=== PATIENT | male | born 1980 | race Caucasian/White ===

== ENCOUNTER 2023-01-11 00:30 | Inpatient (IN) | payer BC, OTHER ==
[~2023-01-11] VITALS: Ht 193 cm; Wt 116.6 kg
[2023-01-11] MEDS ORDERED: MORPHINE SULFATE INJ 4 MG/ML DISP.SYRIN ONE (00:49)
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
--- NOTE | 2023-01-11 00:55 | NUR ---
Morphine 4mg IVP given as ordered pain 10/. Pt care continue.
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
[2023-01-11] MEDS ORDERED: MORPHINE SULFATE INJ 2 MG/ML DISP.SYRIN IM ONE (01:00)
[2023-01-11] MEDS ORDERED: HYDROMORPHONE 1 MG/1 ML DISP.SYRIN ONE ×2 (02:16→05:28)
[2023-01-11 02:28] LABS: BASOPHILS % (AUTO) 0.3 % (0.0-2.0); EOSINOPHILS % (AUTO) 0.1 % (0.0-6.0); HEMATOCRIT 48 % (39-51); HEMOGLOBIN 16.2 g/dL (13.5-17.5); LYMPHOCYTES # (AUTO) 1.5 K/uL (0.8-4.8); LYMPHOCYTES % (AUTO) 11.9 % (20.0-44.0); MEAN CORPUSCULAR HGB CONC 34 g/dl (31.0-36.0); MEAN CORPUSCULAR VOLUME 89 fL (80-96); MONOCYTES # (AUTO) 0.6 K/uL (0.1-1.30); MONOCYTES % (AUTO) 4.9 % (2.0-12.0); NEUTROPHILS # (AUTO) 10.6 K/uL (1.8-8.9); NEUTROPHILS % (AUTO) 82.8 % (43.0-81.0); PLATELET COUNT (AUTO) 271 K/uL (150-450); RED BLOOD CELL COUNT(AUTO) 5.33 MIL/uL (4.5-6.0); WHITE BLOOD COUNT (AUTO) 12.8 K/uL (4.3-11.0)
[2023-01-11] MEDS ORDERED: HYDROMORPHONE 1 MG/1 ML DISP.SYRIN IV ONE (02:30)
--- NOTE | 2023-01-11 02:35 | NUR ---
Pt is been casted after Dilaudid 0.5mg IVP given for pain. Pt care continue.
[2023-01-11 02:43] LABS: CREATININE 1.2 mg/dL (0.6-1.3); POTASSIUM 3.7 mmol/L (3.5-5.1)
[2023-01-11] MEDS ORDERED: ONDANSETRON HCL/PF 4 MG/2 ML VIAL IVP PRN (04:00)
[2023-01-11] MEDS ORDERED: MAGNESIUM HYDROXIDE 30 ML UDC PO PRN (04:00)
[2023-01-11] MEDS ORDERED: ACETAMINOPHEN 325 MG TABLET PO PRN (04:00)
[2023-01-11] MEDS ORDERED: HYDROCODONE/APAP 10/325MG TABLET PO PRN (04:00)
[2023-01-11] MEDS ORDERED: Z GUARD REMEDY 4 OZ OINT TP PRN (04:00)
--- NOTE | 2023-01-11 04:10 | NUR ---
Pt care continue as he is been admited. Pt care continue as awaits bed.
[2023-01-11] MEDS: MAG HYDROX/AL HYDROX/SIMETH 30 ML UDC PO PRN ×3 (05:29→19:56)
[2023-01-11] MEDS: HYDROMORPHONE INJ 2 MG/ML DISP.SYRIN IV PRN ×5 (05:30→23:51)
--- NOTE | 2023-01-11 05:36 | NUR ---
Pt is been medicated with Dilaudid 1mg IVP for pain 10/10 , Zofran 4mg IVP for Nasuea and Maalox 30mg for Gas. Pt care continue as he will be reasssesed.
--- NOTE | 2023-01-11 07:24 | NUR ---
Pt care continue as report is given to the AM receiving nurse.
[2023-01-11] MEDS ORDERED: PANTOPRAZOLE 40 MG TABLET.DR PO ONE (07:59)
[2023-01-11] MEDS: PANTOPRAZOLE 40 MG TABLET.DR PO SCH (08:00)
--- NOTE | 2023-01-11 08:30 | NUR ---
report given to khloe for tracy
--- NOTE | 2023-01-11 08:40 | NUR ---
PT RETURNED FROM [facility]IA [facility]
--- NOTE | 2023-01-11 09:00 | NUR ---
PT TRANSFERRED TO [facility] SURG
--- NOTE | 2023-01-11 09:45 | NUR ---
MACHINE SHOP WORKER ADMISSION NOTE PATIENT WAS RECEIVED VIA GURNEY ACCOMPANIED BY TWO ER STAFF. PATIENT IS A/Ox4, ABLE TO MAKE NEEDS KNOWN. ON ROOM AIR, NO S/S OF SOB. PATIENT PAIN LEVEL 7, R LEG PAIN, SHOWING RESTLESSNESS AND FACE GRIMACING. VIALS BP 156/84, HR 128, T 97.9, 02 98%. SKIN ASSESSMENT PERFORMED, SKIN C/D/I, R LEG WRAPPED AND IMMOBILIZED DUE TO FRACTURE. NO EDEMA PRESENT, SKIN WARM TO TOUCH. BLE <3 CAPILLARY REFILL. IV ACCESS ON LAC G#18 INTACT AND PATENT FLUSHING WELL. PATIENT WAS ORIENTED TO ROOM AND HOW TO USE CALL LIGHT. BELONGING WERE ACCOUNTED FOR AND BELONGING SHEET WAS SIGNED AND PLACED IN THE CHART. ADMINISTERED NORCO TO REDUCE PAIN ORDER. SAFETY AND FALL RISK MEASURES IN PLACE: BED LOCKED AND IN THE LOWEST POSITION, SRx2, CALL LIGHT WITHIN REACH.
--- NOTE | 2023-01-11 11:00 | NUR ---
RN NOTES PATIENT COMPLAINED OF PAIN 8/10, PRN DILAUDID ADMINISTERED. PATIENT STILL RESTLESS IN BED AND STATING THAT HE HAS PAIN 5/10. WILL CONTINUE TO MONITOR AND MANAGE PAIN ORDERED
[2023-01-11] MEDS: HYDROCODONE/APAP 10/325MG TABLET PO PRN ×2 (13:29→21:40)
[2023-01-11 15:34] VITALS: BP 156/84
[2023-01-11 16:00] VITALS: BP 143/89
--- NOTE | 2023-01-11 17:11 | NUR ---
RN NOTES PATIENT COMPLAINED OF PAIN 8/10, OF R LEG, PRN DILAUDID ADMINISTERED. WILL CONTINUE TO MONITOR.
--- NOTE | 2023-01-11 19:11 | NUR ---
TECHNICAL AIDE CLOSING NOTE PATIENT IS AWAKE IN BED, A/Ox4, STABLE ON ROOM AIR, BREATHING EVEN AND UNLABORED. NO S/S OF SOB. IV ACCESS IS LAC G#18,PATENT AND INTACT, FLUSHING WELL. PAIN MANAGEMENT MAINTAINED. MEDICATION ADMINISTERED SCHEDULED. FALL AND SAFETY PRECAUTION MAINTAINED: BED ALARM IS ON, LOCKED AND IN THE LOWEST POSITION, SRx2 , CALL LIGHT WITHIN REACH. ENDORSED TO TWISTER TENDER PAPER NURSE.
--- NOTE | 2023-01-11 19:30 | NUR ---
MSRN FULLY AWAKE, IN SEVERE RIGHT LEG/ANKLE PAIN. SITE WITH SPLINT TO IMMOBILIZE LEG SEC TO FX TIB FIB. PLAN OF CARE AND PAIN MGT DISCUSSED WITH PATIENT AND MOTHER, APPEARS TO UNDERSTAND. AWARE PATIENT S' SURGERY NOT TILL WED EARLY AM. DILAUDED 1 MG IVP ADMINISTERED AT 1954. ICEPACKS OVER SITE, SUPPORTED WITH PILLOWS. KEPT COMFORTABLE. CONTINUED.
[2023-01-11 20:00] VITALS: BP 139/73
--- NOTE | 2023-01-11 21:40 | NUR ---
MSRN WEI 1 TAB GIVEN FOR BREAKTHROUGH PAIN. PAIN UNBEARABLE STATED BY PATIENT. MOTHER WANTED TO SPEAK TO ORTHO MD RAI. WILL CALL MOTHER ONCE ORTHO SEES PATIENT, WILL ENDORSE TO INCOMING RN FOR AM.POSITIONS SELF FOR COMFORT.
[2023-01-11 22:00] VITALS: BP 139/73
--- NOTE | 2023-01-11 23:55 | NUR ---
MSRN AWAKENED WITH SEVEE RIGHT LEG PAIN, DILAUDED ADMINISTERED. SCALE OF 8/10.
[2023-01-12] MEDS: TEMAZEPAM 15 MG CAPSULE PO PRN (01:57)
[2023-01-12] MEDS: HYDROMORPHONE INJ 2 MG/ML DISP.SYRIN IV PRN ×4 (04:43→20:42)
--- NOTE | 2023-01-12 05:01 | NUR ---
MSRN PAIN SCALE OF 8/10 OF RIGHT LEG /ANKLE PAIN, DILAUDED 1 MG IVP ADMINISTERED. POSITIONS' SELF FOR COMFORT.
[2023-01-12 06:28] LABS: BASOPHILS % (AUTO) 0.4 % (0.0-2.0); EOSINOPHILS % (AUTO) 1.1 % (0.0-6.0); HEMATOCRIT 41 % (39-51); HEMOGLOBIN 13.9 g/dL (13.5-17.5); LYMPHOCYTES # (AUTO) 1.7 K/uL (0.8-4.8); LYMPHOCYTES % (AUTO) 23.6 % (20.0-44.0); MEAN CORPUSCULAR HGB CONC 34 g/dl (31.0-36.0); MEAN CORPUSCULAR VOLUME 91 fL (80-96); MONOCYTES # (AUTO) 0.6 K/uL (0.1-1.30); MONOCYTES % (AUTO) 8.9 % (2.0-12.0); NEUTROPHILS # (AUTO) 4.7 K/uL (1.8-8.9); PLATELET COUNT (AUTO) 199 K/uL (150-450); RED BLOOD CELL COUNT(AUTO) 4.55 MIL/uL (4.5-6.0); WHITE BLOOD COUNT (AUTO) 7.2 K/uL (4.3-11.0)
[2023-01-12 06:35] LABS: CREATININE 1.1 mg/dL (0.6-1.3); PHOSPHORUS 3.6 mg/dL (2.5-4.9); POTASSIUM 3.4 mmol/L (3.5-5.1)
--- NOTE | 2023-01-12 06:48 | NUR ---
MSRN ASLEEP OF THIS TIME. CLOSELY MONITORED.
--- NOTE | 2023-01-12 07:30 | NUR ---
MSRN DR HALL NOTIFIED FOR CARDIAC CLEARANCE.
[2023-01-12] MEDS: HYDROCODONE/APAP 10/325MG TABLET PO PRN ×4 (07:39→22:09)
[2023-01-12] MEDS: PANTOPRAZOLE 40 MG TABLET.DR PO SCH (07:39)
[2023-01-12 08:00] VITALS: BP 125/75
[2023-01-12] MEDS ORDERED: IV NS 0.9% 1,000 ML IV PRN (09:00)
[2023-01-12 09:13] LABS: CHOLESTEROL 201 mg/dL (<200); HDL CHOLESTEROL 54 mg/dL (40-60); LDL 110 mg/dL (0-99); TRIGLYCERIDES 359 mg/dL (30-150)
[2023-01-12] MEDS: POTASSIUM CHLORIDE 20 MEQ TAB.PRT.SR PO SCH ×3 (09:23→11:44)
[2023-01-12 16:00] VITALS: BP 115/73
--- NOTE | 2023-01-12 18:30 | NUR ---
RN- SHIFT SUMMARY 0700- PATIENT RECEIVED ASLEEP IN BED, BREATHING EVEN AND NON LABORED WITH NO S/S OF DISTRESS. PATIENT IS EASILY AROUSED AND ON RA, TOLERATING WELL. PATIENT C/O PAIN ON RIGHT LOWER EXTREMITY. IV ACCESS ON LEFT AC #20 G NOTED, IV IS INTACT AND PATENT. SAFETY MEASURES IN PLACE: BED PLACED IN LOCKED AND LOW POSITION, SIDE RAILS UP X2, BED ALARM ON, WITH CALL LIGHT WITHIN REACH. 0800- PATIENT AND MOTHER REQUIRED MORE QUESTIONS TO BE ANSWERED ABOUT SURGERY, CONSENT FORMS NOT SIGNED, WILL ENDORSE TO PROGRAM ENGINEER NURSE. 1445- UA ORDERED, PATIENT IS UNABLE TO VOID AT THIS TIME. WILL ENDORSE TO PROGRAM ENGINEER NURSE FOR SPECIMEN COLLECTION. 1830- PATIENT IS AWAKE IN BED, BREATHING EVEN AND NON LABORED WITH NO S/S OF DISTRESS. PATIENT CONTINUES ON RA, TOLERATING WELL. PAIN OF RIGHT LEG IS CURRENTLY BEING RELIEVED WITH NORCO, ADMINISTERED AT 0739, 1407, AND 1817, AND DILAUDID, ADMINISTERED AT 0924 AND 1615, IV ACCESS ON LEFT AC REMAINS INTACT AND PATENT. ALL MEDICATIONS GIVEN THROUGHOUT THE SHIFT. SAFETY MEASURES CONTINUES TO BE IN PLACE: BED PLACED IN LOCKED AND LOW POSITION, SIDE RAILS UP X2, BED ALARM ON, WITH CALL LIGHT WITHIN REACH. WILL ENDORSE TO PROGRAM ENGINEER NURSE FOR CONTINUATION OF CARE.
[2023-01-12 20:00] VITALS: BP 126/83
--- NOTE | 2023-01-12 20:00 | NUR ---
URINALYSIS Urine specimen collected, send to lab for test.
--- NOTE | 2023-01-12 20:17 | NUR ---
PROCEDURE CONSENT Patient ready to sign consent, per patient he understood procedure surgery after KYRA Devi explained to him earlier today. Patient consented to Surgery,Anesthesia, possible Blood transfusion. Completed consent in the patient chart.
--- NOTE | 2023-01-12 20:28 | NUR ---
NPO AFTER MIDNIGHT on 01/13/2023 at 0000 Patient for procedure ORIF right Ankle and nailing right Tibia tomorrow at 0700. Instruction given to patient, not to eat and drink fluids after midnight on 01/13/2023 at 0000. Patient verbalized understanding.
--- NOTE | 2023-01-12 20:50 | NUR ---
RIGHT LEG PAIN Patient in bed, c/o right leg pain 05/06. Denies N/V, no c/o headache. IV Dilaudid given, will reassess pain level.
[2023-01-12 21:53] LABS: COLOR,URINE YELLOW (YELLOW)
[2023-01-12 21:54] LABS: BILIRUBIN,URINE 1+ (NEGATIVE); UGLUCOSE NEGATIVE (NEGATIVE)
[2023-01-12 21:55] LABS: PH,URINE 6.5 (5.0-8.0)
[2023-01-12 21:56] LABS: LEUKOCYTE ESTERASE ,URINE NEGATIVE (NEGATIVE); NITRITE, URINE NEGATIVE (NEGATIVE); PROTEIN,URINE TRACE mg/dl (NEGATIVE); UROBILINOGEN,URINE 0.2 EU/dL (0.2)
[2023-01-12 22:00] LABS: BACTERIA,URINE None seen /HPF (None Seen); RBC,URINE 0-2 /HPF (0-2); SQUAMOUS EPITHELIAL CELL,UR 0-2 /HPF (None Seen); WBC,URINE 0-2 /HPF (0-3)
[2023-01-12] MEDS: ATORVASTATIN 40 MG TABLET PO SCH (22:09)
[2023-01-13] MEDS: HYDROMORPHONE INJ 2 MG/ML DISP.SYRIN IV PRN ×4 (00:30→18:50)
[2023-01-13 04:54] VITALS: BP 119/67
--- NOTE | 2023-01-13 05:49 | NUR ---
END OF SHIFT REPORT Patient in bed, Alert Oriented x4. Oxygen sat high 90's in RA. RFA IV peripheral line intact, IVF continuos. NPO status. Right leg with Arnaldo wrap splint. Right leg, ankle pain managed with IV Dilaudid, ice pack to RLE. NWB RLE. Denies N/V, no c/o chest pain. Surgical and procedural checklist completed. Fall precaution maintained. Plan for ORIF Right ankle and intramedullary nailing Right Tibia in am. Will endorse to oncoming RN.
[2023-01-13] MEDS ORDERED: ANESTHESIA TRAY IN PYXIS 1 EA TRAY MC ONE (06:19)
[2023-01-13] MEDS ORDERED: VANCOMYCIN 1 GM VIAL ONE (06:20)
[2023-01-13] MEDS ORDERED: POLYMYXIN B SULFATE 0 UNITS ONE (06:20)
[2023-01-13] MEDS ORDERED: BUPIVACAINE 0.25% 75 MG/30 ML VIAL ONE (06:20)
[2023-01-13] MEDS ORDERED: SEVOFLURANE 250 ML BOTTLE IH ONE (06:24)
[2023-01-13 06:27] LABS: BASOPHILS % (AUTO) 0.6 % (0.0-2.0); EOSINOPHILS % (AUTO) 2.5 % (0.0-6.0); HEMATOCRIT 38 % (39-51); HEMOGLOBIN 12.7 g/dL (13.5-17.5); LYMPHOCYTES # (AUTO) 1.4 K/uL (0.8-4.8); LYMPHOCYTES % (AUTO) 26.1 % (20.0-44.0); MEAN CORPUSCULAR HGB CONC 33 g/dl (31.0-36.0); MEAN CORPUSCULAR VOLUME 94 fL (80-96); MONOCYTES # (AUTO) 0.4 K/uL (0.1-1.30); MONOCYTES % (AUTO) 7.5 % (2.0-12.0); NEUTROPHILS # (AUTO) 3.3 K/uL (1.8-8.9); NEUTROPHILS % (AUTO) 63.3 % (43.0-81.0); PLATELET COUNT (AUTO) 159 K/uL (150-450); RED BLOOD CELL COUNT(AUTO) 4.07 MIL/uL (4.5-6.0); WHITE BLOOD COUNT (AUTO) 5.2 K/uL (4.3-11.0)
[2023-01-13 06:30] LABS: ALBUMIN 3.7 g/dL (3.4-5.0); BILIRUBIN,TOTAL 0.7 mg/dL (0.2-1.0); CALCIUM, SERUM 8.7 mg/dL (8.5-10.1); CREATININE 1.2 mg/dL (0.6-1.3); MAGNESIUM 2.1 mg/dL (1.8-2.4); PHOSPHORUS 2.7 mg/dL (2.5-4.9); POTASSIUM 3.8 mmol/L (3.5-5.1); TOTAL PROTEIN, SERUM 6.9 g/dL (6.4-8.2)
[2023-01-13] MEDS ORDERED: FENTANYL PF 250MCG/5ML AMPUL ONE (06:52)
[2023-01-13] MEDS ORDERED: MIDAZOLAM HCL 2 MG/2ML VIAL ONE (06:52)
[2023-01-13] MEDS ORDERED: DEXAMETHASONE SOD PHOSPHATE 10 MG/ML VIAL ONE (06:53)
[2023-01-13] MEDS ORDERED: BUPIVACAINE 0.5 % PF 150 MG/30 ML VIAL ONE (06:53)
[2023-01-13] MEDS ORDERED: FAMOTIDINE/PF INJ 20 MG/2 ML VIAL IV ONE (06:53)
[2023-01-13] MEDS ORDERED: ROCURONIUM BROMIDE 50 MG/5 ML ONE (06:54)
--- NOTE | 2023-01-13 07:10 | NUR ---
NURSE OPENING NOTE I RECEIVED END OF SHIFT REPORT FOR THIS PT FROM THE CHARGE WEIGHER NURSE . THE PT WAS NOT IN HIS ROOM WHEN MY SHIFT STARTED, PT WAS TAKEN TO OR FOR HIS TIBIA/FIBIULA SURGERY.
[2023-01-13] MEDS: PANTOPRAZOLE 40 MG TABLET.DR PO SCH ×2 (07:30→07:51)
[2023-01-13] MEDS ORDERED: TRANEXAMIC ACID 1,000 MG/10 ML VIAL ONE (07:57)
[2023-01-13] MEDS ORDERED: HYDROGEN PEROXIDE 480 ML BOTTLE ONE (08:16)
--- NOTE | 2023-01-13 08:19 | NUR ---
Pantoprazole 40 mg could not be administered at 0730 because pt is in surgery .
[2023-01-13] MEDS ORDERED: FENTANYL PF 100MCG/2ML AMPUL ONE (09:37)
[2023-01-13 10:07] LABS: HEMOGLOBIN 12.7 g/dL (13.5-17.5)
[2023-01-13] MEDS ORDERED: DOCUSATE SODIUM 100 MG CAPSULE PO PRN (10:30)
[2023-01-13] MEDS ORDERED: HYDROCODONE/APAP 5/325MG TABLET PO PRN ×2 (10:30)
[2023-01-13] MEDS ORDERED: DOCUSATE SODIUM 250 MG CAPSULE PO PRN (10:30)
[2023-01-13] MEDS ORDERED: BISACODYL SUPP (10 MG) 10 MG/SUPP.RECT SUPP.RECT RC PRN (10:30)
[2023-01-13] MEDS ORDERED: ACETAMINOPHEN 325 MG TABLET PO PRN (10:30)
[2023-01-13] MEDS ORDERED: SENNOSIDES 8.6 MG TABLET PO PRN ×2 (10:30)
--- NOTE | 2023-01-13 10:30 | NUR ---
RN NOTE- RETURNED FROM SURGERY. VS STABLE, 02 AT 95% SATS ON RA. LLE W SURGICAL DSG, DRY INTACT. PERIPHERAL PULSES +, ICE PACKS APPLIED, MEDICATED W ANALGESICS. FLUIDS GIVEN. MONITOR / ASSIST, COMFORT MONITORED
[2023-01-13] MEDS: MORPHINE SULFATE INJ 4 MG/ML DISP.SYRIN IV PRN ×3 (10:43→20:14)
[2023-01-13] MEDS: ENOXAPARIN SODIUM 40 MG/0.4 ML DISP.SYRIN SQ SCH (11:49)
[2023-01-13] MEDS: HYDROCODONE/APAP 10/325MG TABLET PO PRN ×3 (13:00→21:57)
[2023-01-13] MEDS: ANCEF 1 GM/50 ML D5W IV SCH ×4 (15:06→23:22)
[2023-01-13 15:58] VITALS: BP 100/61
--- NOTE | 2023-01-13 16:33 | NUR ---
RN NOTE- PT MORE COMFORTABLE WITH ALTERNATING MEDS. MORPHINE / NORCO / DILAUDID. ICE PACKS APPLIED AND PILLOWS FOR REPOSITIONING AND COMFORT. PO INTAKE GOOD. FLUIDS ADEQUATE. MONITOR
--- NOTE | 2023-01-13 18:33 | NUR ---
RN CLOSING NOTE-S/P TIB FIB ORIF RLE. SURGICAL DSG DRY / INTACT,PERIPHERAL PULSES +, CAPILLARY REFILL +3, TOES WARM, ICE PACKS APPLIED TO EXTREMITY. ALTERNATING MORPHINE , NORCO, DILAUDID TO KEEP HIM COMFORTABLE. PO INTAKE GOOD FOOD / FLUIDS. PT EVAL - PT STOOD ON OPPOSITE LEG. NON WEIGHT BEARING ON SURGICAL EXTREMITY. CONTINUE TO MAINTAIN COMFORT AND MONITOR PAIN AND DRESSING/ PERIPHERAL PULSES AND CAPILLARY REFILL. SIDE RAILS UP/ CALL LIGHT CLOSE. MONITOR / ASSIST
--- NOTE | 2023-01-13 19:20 | NUR ---
MS RN OPENING NOTE RECEIVED PATIENT FROM AM NURSE; A/O X 4, ABLE TO MAKE NEEDS KNOWN; STABLE ON ROOM AIR, BREATHING EVENLY AND NO S/S OF DISTRESS NOTED; S/P ORIF OF RIGHT ANKLE AND NAILING OF RIGHT TIBIA; WITH COMPLAINT OF MILD PAIN AT THIS TIME, WAITING FOR HIS NEXT DUE OF PAIN MEDICATION; WITH IV ACCESS AT RIGHT AC G#20 SALINE LOCK; SAFETY MEASURES IMPLEMENTED, BED IN LOW AND LOCKED POSITION, SIDE RAILS UP X 2, CALL LIGHT WITHIN REACH; WILL CONTINUE TO MONITOR THROUGHOUT SHIFT
[2023-01-13 20:00] VITALS: BP 116/61
[2023-01-13] MEDS: ATORVASTATIN 40 MG TABLET PO SCH (21:57)
[2023-01-14] MEDS: MORPHINE SULFATE INJ 4 MG/ML DISP.SYRIN IV PRN ×5 (00:26→22:12)
[2023-01-14] MEDS: HYDROCODONE/APAP 10/325MG TABLET PO PRN ×5 (02:07→19:43)
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
[2023-01-14] MEDS: PANTOPRAZOLE 40 MG TABLET.DR PO SCH (06:40)
[2023-01-14 07:00] VITALS: BP 101/65
[2023-01-14 07:10] LABS: BASOPHILS % (AUTO) 0.1 % (0.0-2.0); HEMATOCRIT 33 % (39-51); LYMPHOCYTES # (AUTO) 0.5 K/uL (0.8-4.8); LYMPHOCYTES % (AUTO) 7.5 % (20.0-44.0); MEAN CORPUSCULAR HGB CONC 34 g/dl (31.0-36.0); MEAN CORPUSCULAR VOLUME 93 fL (80-96); MONOCYTES # (AUTO) 0.5 K/uL (0.1-1.30); MONOCYTES % (AUTO) 7.5 % (2.0-12.0); NEUTROPHILS # (AUTO) 5.9 K/uL (1.8-8.9); NEUTROPHILS % (AUTO) 84.9 % (43.0-81.0); PLATELET COUNT (AUTO) 168 K/uL (150-450); WHITE BLOOD COUNT (AUTO) 6.9 K/uL (4.3-11.0)
--- NOTE | 2023-01-14 07:15 | NUR ---
MS RN CLOSING NOTE A/O X 4, ABLE TO MAKE NEEDS KNOWN; STABLE ON ROOM AIR, BREATHING EVENLY AND NO S/S OF DISTRESS NOTED; S/P ORIF OF RIGHT ANKLE AND NAILING OF RIGHT TIBIA; WITH IV ACCESS AT LEFT HAND G#20 SALINE LOCK, INTACT AND PATENT; ADMINISTERED MEDICATIONS PRESCRIBED; PATIENT'S NEEDS ATTENDED; MONITORED PATIENT ACCORDINGLY; SAFETY MEASURES IMPLEMENTED, BED IN LOW AND LOCKED POSITION, SIDE RAILS UP X 2, CALL LIGHT WITHIN REACH; WILL ENDORSE TO AM NURSE FOR MINOR.
[2023-01-14 07:32] LABS: CALCIUM, SERUM 9.1 mg/dL (8.5-10.1); CREATININE 1.4 mg/dL (0.6-1.3); POTASSIUM 4.3 mmol/L (3.5-5.1)
--- NOTE | 2023-01-14 08:15 | NUR ---
RN OPENING NOTE PT IS IN BED, AWAKE, A/O X 4, HE HAD HIS FIRST NIGHT AFTER HIS SURGERY FOR S/P ORIF OF RIGHT ANKLE AND NAILING OF RIGHT TIBIA; PT SAYS HE HAD A ROUGH NIGHT LAST NIGHT WAKING UP ON AND OFF WITH A PAIN OF AT LEAST 6 OUT OF 10. I DID THE MORNING ASSESSMENTS , VITALS ARE NORMAL. HEART AND LUNG SOUNDS ARE NORMAL. BOWEL SOUNDS ARE HYPOACTIVE AND I ASKED THE PT ABOUT HIS LAST BOWEL MOVEMENT AND PT SAID HE HAD ONE BOWEL MOVEMENT SINCE 3 DAYS AGO . I WILL GIVE HIM COLACE TODAY TO HELP HIM GO . PT IS ON RA & STABLE BREATHING EVENLY, NO S/S OF DISTRESS NOTED; WITH IV ACCESS AT LEFT HAND G#20 SALINE LOCK, INTACT AND PATENT; I WILL ADMINISTER HYDROCODONE AND MORPHINE ALTERNATIVELY TODAY TO RELIEVE HIS SURGICAL PAIN WHICH IS 8 OUT OF 10 AT THIS TIME. I WILL MONITORED PATIENT ACCORDINGLY; SAFETY MEASURES IMPLEMENTED, BED IS LOCKED AND IN LOWEST POSITION.SIDE RAILS UP X 2, CALL LIGHT WITHIN REACH; PT ASKED FOR A BED BATH , DEODORANT , TOOTH PASTE AND MOUTH WASH WHICH WERE DONE FOR THE PT THIS MORNING. LABS ARE BACK. HGB 11, HCT 33. RBC 3.5. PT CARE AND PAIN MANAGEMENT ARE IN PLACE FOR MY SHIFT.
[2023-01-14] MEDS: ENOXAPARIN SODIUM 40 MG/0.4 ML DISP.SYRIN SQ SCH (11:07)
--- NOTE | 2023-01-14 16:00 | NUR ---
RN NOTE- SURGICAL DRESSING LOOSE AND IRRITATING PT. REMOVED DRESSING AT THIS TIME. DAWN ALL INTACT, EDGES WELL-APPROXIMATED, NO DEHISCENCE, NO PURULENCE, ERYTHEMA OR ODOR. PETROLEUM GAUZE REAPPLIED TO DAWN, COVERED W STERILE GAUZE, TAPED SECURELY AND WRAPPED BEFORE. PRE-MEDICATED PER ORDERS. TOLERATED WELL. PHOTOS TAKEN AND FORWARDED TO DR GOMEZ.
[2023-01-14 16:22] VITALS: BP 102/68
[2023-01-14] MEDS: GABAPENTIN 100 MG CAPSULE PO SCH (16:49)
--- NOTE | 2023-01-14 18:40 | NUR ---
RN CLOSING NOTE PT IS A/O X 4, STABLE ON RA, BREATHING WITH NO DISTRESS . GOOD APPETITE. NORMAL VSs. GOOD APPETITE. PT IS CONSTIPATED AND STILL NO BOWEL MOVEMENT. ABLE TO MAKE NEEDS KNOWN; THE SURGICAL DRESSING OF RIGHT LEG WAS CHANGED BY TONY IN THE AFTERNOON, NO INFECTION, REDNESS, OR ODOR WAS NOTED. SURGICAL WOUNDS HAVE DAWN AND ARE HEALING WELL. IV ACCESS AT LEFT HAND G#20 SALINE , PATENT AND INTACT. ADMINISTERED PAIN MEDICATIONS AND LOVENOX PRESCRIBED; PATIENT'S NEEDS ATTENDED; MONITORED PATIENT ACCORDINGLY; MOTHER VISITED THE SON IN THE AFTERNOON. SAFETY MEASURES IMPLEMENTED: BED IN LOW AND LOCKED POSITION, SIDE RAILS UP X 2, CALL LIGHT WITHIN REACH; WILL ENDORSE TO PM NURSE FOR MINOR.
--- NOTE | 2023-01-14 19:30 | NUR ---
MS RN OPENING NOTE A/O X 4, ABLE TO MAKE NEEDS KNOWN; STABLE ON ROOM AIR, BREATHING EVENLY AND NO S/S OF DISTRESS NOTED; S/P ORIF OF RIGHT ANKLE AND NAILING OF RIGHT TIBIA; WITH IV ACCESS AT LEFT HAND G#20 SALINE LOCK, INTACT AND PATENT; ENCOURAGED VERBALIZATION OF NEEDS; SAFETY MEASURES IMPLEMENTED, BED IN LOW AND LOCKED POSITION, SIDE RAILS UP X 2, CALL LIGHT WITHIN REACH; WILL CONTINUE TO MONITOR THROUGHOUT SHIFT
[2023-01-14 20:26] VITALS: BP 118/53
[2023-01-14] MEDS: ATORVASTATIN 40 MG TABLET PO SCH (22:12)
[2023-01-15] MEDS: HYDROCODONE/APAP 10/325MG TABLET PO PRN ×4 (01:32→10:07)
--- NOTE | 2023-01-15 05:00 | NUR ---
MS RN NOTE UPON MAKING ROUNDS, NOTED THAT PATIENT'S IV ACCESS WAS OUT AND REINSERTED IV ACCESS ON RIGHT HAND G#20, INTACT AND PATENT, FLUSHING WELL; WILL CONTINUE TO MONITOR
[2023-01-15 06:22] LABS: BASOPHILS % (AUTO) 0.5 % (0.0-2.0); EOSINOPHILS % (AUTO) 1.5 % (0.0-6.0); HEMATOCRIT 31 % (39-51); HEMOGLOBIN 10.5 g/dL (13.5-17.5); LYMPHOCYTES # (AUTO) 1.5 K/uL (0.8-4.8); MEAN CORPUSCULAR HGB CONC 33 g/dl (31.0-36.0); MEAN CORPUSCULAR VOLUME 93 fL (80-96); MONOCYTES # (AUTO) 0.3 K/uL (0.1-1.30); NEUTROPHILS # (AUTO) 3.2 K/uL (1.8-8.9); PLATELET COUNT (AUTO) 145 K/uL (150-450); RED BLOOD CELL COUNT(AUTO) 3.39 MIL/uL (4.5-6.0); WHITE BLOOD COUNT (AUTO) 5.1 K/uL (4.3-11.0)
--- NOTE | 2023-01-15 06:57 | NUR ---
MS RN CLOSING NOTE PATIENT IS A/O X 4, ABLE TO MAKE NEEDS KNOWN; STABLE ON ROOM AIR, BREATHING EVENLY AND NO S/S OF DISTRESS NOTED; S/P ORIF OF RIGHT ANKLE AND NAILING OF RIGHT TIBIA; WITH IV ACCESS , INTACT AND PATENT; ADMINISTERED MEDICATIONS PRESCRIBED; PATIENT'S NEEDS ATTENDED; MONITORED PATIENT ACCORDINGLY; SAFETY MEASURES IMPLEMENTED, BED IN LOW AND LOCKED POSITION, SIDE RAILS UP X 2, CALL LIGHT WITHIN REACH; WILL ENDORSE TO AM NURSE FOR MINOR.
[2023-01-15 07:00] VITALS: BP 151/99
--- NOTE | 2023-01-15 07:15 | NUR ---
MS RN OPENING NOTE RECEIVED PT IN BED AWAKE ; STABLE ON ROOM AIR, NO SOB OR DISTRESS NOTED; S/P ORIF OF RIGHT ANKLE AND NAILING OF RIGHT TIBIA; WITH IV ACCESS AT LEFT HAND G#20 SALINE LOCK, INTACT AND PATENT; ENCOURAGED VERBALIZATION OF NEEDS; SAFETY MEASURES IMPLEMENTED, BED IN LOW AND LOCKED POSITION, SIDE RAILS UP X 2, CALL LIGHT WITHIN REACH; WILL CONTINUE TO MONITOR THROUGHOUT SHIFT
[2023-01-15] MEDS: GABAPENTIN 100 MG CAPSULE PO SCH (08:25)
[2023-01-15] MEDS: DOCUSATE SODIUM 100 MG CAPSULE PO SCH (08:25)
[2023-01-15] MEDS: PANTOPRAZOLE 40 MG TABLET.DR PO SCH (08:25)
[2023-01-15] MEDS ORDERED: IV NS 0.9% 1,000 ML IV PRN (09:00)
[2023-01-15 09:12] LABS: BASOPHILS % (AUTO) 0.6 % (0.0-2.0); EOSINOPHILS % (AUTO) 1.4 % (0.0-6.0); HEMATOCRIT 32 % (39-51); HEMOGLOBIN 10.8 g/dL (13.5-17.5); LYMPHOCYTES % (AUTO) 19.8 % (20.0-44.0); MEAN CORPUSCULAR HGB CONC 33 g/dl (31.0-36.0); MEAN CORPUSCULAR VOLUME 92 fL (80-96); MONOCYTES # (AUTO) 0.3 K/uL (0.1-1.30); MONOCYTES % (AUTO) 6.9 % (2.0-12.0); NEUTROPHILS # (AUTO) 3.6 K/uL (1.8-8.9); NEUTROPHILS % (AUTO) 71.3 % (43.0-81.0); PLATELET COUNT (AUTO) 157 K/uL (150-450); RED BLOOD CELL COUNT(AUTO) 3.52 MIL/uL (4.5-6.0); WHITE BLOOD COUNT (AUTO) 5.1 K/uL (4.3-11.0)
[2023-01-15 09:50] LABS: ALBUMIN 3.5 g/dL (3.4-5.0); BILIRUBIN,TOTAL 0.4 mg/dL (0.2-1.0); CALCIUM, SERUM 8.8 mg/dL (8.5-10.1); CREATININE 1.1 mg/dL (0.6-1.3); MAGNESIUM 2.1 mg/dL (1.8-2.4); PHOSPHORUS 2.6 mg/dL (2.5-4.9); POTASSIUM 3.6 mmol/L (3.5-5.1); TOTAL PROTEIN, SERUM 6.7 g/dL (6.4-8.2)
--- NOTE | 2023-01-15 10:00 | NUR ---
RN NOTES AROUND 0740 PATIENT WAS SEEN CRAWLING ON THE FLOOR GOING OUTSIDE THE HALLWAY FROM ROOM 310 , NOTED WITH SLIGHT BLEEDING ON THE FLOOR FROM THE RIGHT LOWER LEG OF THE PATIENT , TRIED TO STOP PATIENT BUT STILL CONTINUE CRAWLING ON THE FLOOR , S/P RIGHT LOWER LEG ORIF AND PATIENT NOTED WITH CONFUSION AND FORGETFULNESS , OFFERED WITH WHEEL CHAIR AND STILL CONTINUE TO CRAWL , ASKED PATIENT PATIENT WHAT HAPPENED AND PATIENT SAID " HE TRIED TO STAND UP BY HIMSELF OUT OF THE BED AND HIS RIGHT LEGS IS SO WEAK AND TRIED TO SIT ON THE FLOOR , HE SAID HE DIDN'T HIT HIS HEAD AND HE DIDNT FALL , HE SAID THAT HES HEARING VOICES , PATIENT IS HAVING AUDITORY HALLUCINATIONS , WAS ABLE TO STOP PATIENT CRAWLING WITH THE HELP OF THE OTHER STAFF , ASSISTED BACK TO BED AND HE SAID THAT HE WANTS ANOTHER ROOM , HE DOESNT WANT TO GO BACK TO ROOM 310 , TRANSFERED TO ROOM 322 -1 AND KEPT COMFORTABLE , CHARGE NURSE ASSIGNED WITH SITTER , BODY ASSESSMENT DONE AND RANGE OF MOTION RENDERED AND HE SAID HES IN PAIN BUT HE DOESNT WANT TO TAKE THE MEDICATION , OFFERED WITH WATER AND PATIENT ASKING IF WE PUT SOMETHING IN THE WATER , ASSURED THAT NOTHING WAS MIXED IN THE WATER, DRESSING ON THE RIGHT LOWER LEG WAS CHANGED AND SURGICAL INCISION WITH DAWN NOTED WITH SLIGHT BLEEDING AND DRESSING WAS CHANGED , DRY ,CLEAN AND INTACT , CALLED MOTHER ABOUT WHAT HAPPENED AND SHE SAID SHES COMING , MD AWARE WITH ORDER TO HAVE XRAY ON THE RIGHT ANKLE AND RIGHT TIBIA - FIBULA STAT AND FOR PSYCH CONSULT WITH DR JOSEPH, ORDERS NOTED AND CARRIED OUT , C/O OF 7/10 PAIN ON THE RIGHT LOWER LEG AND NORCO GIVEN ORDERED, STARTED WITH A NEW IV ACCESS , ALL DUE MEDS GIVEN AND CONTINUE TO MONITOR , PATIENT IS MORE CALM AND MORE ALERT AT THIS TIME .
[2023-01-15] MEDS: ENOXAPARIN SODIUM 40 MG/0.4 ML DISP.SYRIN SQ SCH (11:27)
[2023-01-15] MEDS: risperiDONE 1 MG TABLET PO SCH ×2 (11:56→16:54)
[2023-01-15] MEDS: TRAMADOL HCL 50 MG TABLET PO PRN ×2 (13:42→21:46)
[2023-01-15] MEDS ORDERED: POLYVINYL ALCOHOL 15 ML BOTTLE EACHEYE PRN (14:00)
--- NOTE | 2023-01-15 18:47 | NUR ---
MS RN CLOSING NOTE PATIENT IN BED AWAKE ; STABLE ON ROOM AIR, NO SOB OR DISTRESS NOTED; S/P ORIF OF RIGHT ANKLE AND NAILING OF RIGHT TIBIA; WITH IV ACCESS AT LEFT HAND G#20 SALINE LOCK, INTACT AND PATENT; ENCOURAGED VERBALIZATION OF NEEDS; SAFETY MEASURES IMPLEMENTED, ALL DUE MEDS ORDERED GIVEN , SEEN BY PSYCHIATRIST DR JOSEPH DUE TO AUDITORY HALLUCINATIONS AND WITH NEW ORDER OF RISPERDAL TID , XRAY DONE STAT ON RIGHT ANKLE AND RIGHT TIBIA FIBULA AND NO CHANGES NOTED , C/O OF PAIN AND DISCOMFORT AND TRAMADOL GIVEN ORDERED AND WITH HELP , BED IN LOWEST AND LOCKED POSITION, SIDE RAILS UP X 2, CALL LIGHT WITHIN REACH; ENDORSED TO NEXT SHIFT
--- NOTE | 2023-01-15 19:50 | NUR ---
MS RN OPENING NOTES RECEIVED PATIENT IN BED ASLEEP. EASILY BE AWAKEN BY VERBAL STIMULI. SITTER AT BEDSIDE. ON ROOM AIR, BREATHING EVEN AND UNLABORED, NO SOB OR DISTRESS NOTED. IV ACCESS AT LEFT HAND G#20 SALINE LOCK, INTACT AND PATENT. SAFETY MEASURES IN PLACE WITH BED IN LOWEST AND LOCKED POSITION. SIDE RAILS UP X 2, CALL LIGHT WITHIN REACH. WILL CONTINUE TO MONITOR THE PATIENT.
[2023-01-15 20:00] VITALS: BP 113/66
[2023-01-15] MEDS: ATORVASTATIN 40 MG TABLET PO SCH (21:41)
--- NOTE | 2023-01-15 22:06 | NUR ---
RN NOTES-ULTRAM GIVEN PATIENT C/O OF LEG PAIN WITH A SCALE OF 7/10. ULTRAM 50MG GIVEN PRN. WILL CONTINUE TO MONITOR THE PATIENT.
[2023-01-16] MEDS: HYDROCODONE/APAP 10/325MG TABLET PO PRN ×4 (00:28→21:38)
--- NOTE | 2023-01-16 00:28 | NUR ---
RN NOTES-NORCO GIVEN PATIENT C/O OF LEG PAIN WITH A SCALE OF 8/10. NORCO GIVEN PRN. WILL CONTINUE TO MONITOR THE PATIENT.
[2023-01-16] MEDS: TEMAZEPAM 15 MG CAPSULE PO PRN (00:58)
[2023-01-16] MEDS: TRAMADOL HCL 50 MG TABLET PO PRN ×2 (04:10→13:48)
--- NOTE | 2023-01-16 04:10 | NUR ---
RN NOTES-ULTRAM GIVEN PATIENT C/O OF LEG PAIN WITH A SCALE OF 8/10. ULTRAM 50MG GIVEN PRN. WILL CONTINUE TO MONITOR THE PATIENT.
[2023-01-16 05:58] LABS: BASOPHILS % (AUTO) 0.8 % (0.0-2.0); EOSINOPHILS % (AUTO) 2.8 % (0.0-6.0); HEMATOCRIT 32 % (39-51); HEMOGLOBIN 10.6 g/dL (13.5-17.5); LYMPHOCYTES # (AUTO) 1.5 K/uL (0.8-4.8); LYMPHOCYTES % (AUTO) 32.1 % (20.0-44.0); MEAN CORPUSCULAR HGB CONC 33 g/dl (31.0-36.0); MEAN CORPUSCULAR VOLUME 92 fL (80-96); MONOCYTES # (AUTO) 0.3 K/uL (0.1-1.30); MONOCYTES % (AUTO) 6.2 % (2.0-12.0); NEUTROPHILS # (AUTO) 2.7 K/uL (1.8-8.9); NEUTROPHILS % (AUTO) 58.1 % (43.0-81.0); PLATELET COUNT (AUTO) 158 K/uL (150-450); RED BLOOD CELL COUNT(AUTO) 3.45 MIL/uL (4.5-6.0); WHITE BLOOD COUNT (AUTO) 4.7 K/uL (4.3-11.0)
[2023-01-16 06:30] LABS: ALBUMIN 3.2 g/dL (3.4-5.0); BILIRUBIN,TOTAL 0.5 mg/dL (0.2-1.0); CREATININE 0.9 mg/dL (0.6-1.3); MAGNESIUM 2.4 mg/dL (1.8-2.4); PHOSPHORUS 4.2 mg/dL (2.5-4.9); POTASSIUM 3.4 mmol/L (3.5-5.1); TOTAL PROTEIN, SERUM 6.2 g/dL (6.4-8.2)
--- NOTE | 2023-01-16 06:58 | NUR ---
MS RN CLOSING NOTES PATIENT IN BED ASLEEP. EASILY BE AWAKEN BY VERBAL STIMULI. SITTER AT BEDSIDE. ON ROOM AIR, BREATHING EVEN AND UNLABORED, NO SOB OR DISTRESS NOTED. IV ACCESS AT LEFT HAND G#20 SALINE LOCK, INTACT AND PATENT. SAFETY MEASURES MAINTAINED WITH BED IN LOWEST AND LOCKED POSITION. SIDE RAILS UP X 2, CALL LIGHT WITHIN REACH. WILL ENDORSE TO THE NEXT SHIFT.
[2023-01-16 07:54] VITALS: BP 122/68
[2023-01-16] MEDS ORDERED: POTASSIUM CHLORIDE 20 MEQ TAB.PRT.SR PO SCH (08:00)
[2023-01-16] MEDS: PANTOPRAZOLE 40 MG TABLET.DR PO SCH (08:26)
[2023-01-16] MEDS: DOCUSATE SODIUM 100 MG CAPSULE PO SCH (08:27)
[2023-01-16] MEDS: risperiDONE 1 MG TABLET PO SCH ×2 (08:27→17:24)
[2023-01-16] MEDS: ENOXAPARIN SODIUM 40 MG/0.4 ML DISP.SYRIN SQ SCH (11:49)
[2023-01-16] MEDS ORDERED: MAGNESIUM HYDROXIDE 30 ML UDC PO ONE (15:00)
[2023-01-16 15:04] VITALS: BP 107/52
--- NOTE | 2023-01-16 18:42 | NUR ---
MS RN CLOSING NOTES PATIENT IN BED AWAKE, A/O X4. ON ROOM AIR, BREATHING EVEN AND UNLABORED, NO SOB OR DISTRESS NOTED. IV ACCESS AT LEFT HAND G#20 SALINE LOCK, INTACT AND PATENT. PATIENT'S WAITING FOR BOWEL MOVEMENT TO PROGRESS. LAXATIVE GIVEN AND ALL OTHER MEDICATIONS GIVEN ORDERED. PATIENT EDUCATED ON RISKS AND BENEFITS OF USING PAIN MEDICATIONS OF PAIN MEDICATIONS. SAFETY MEASURES MAINTAINED WITH BED IN LOWEST AND LOCKED POSITION. SIDE RAILS UP X 2, CALL LIGHT WITHIN REACH. WILL BE ENDORSED TO PM SHIFT NURSE FOR MINOR.
--- NOTE | 2023-01-16 19:37 | NUR ---
MS RN OPENING NOTES - RECEIVED PATIENT TALKING ON THE PHONE WHILE LAYING IN BED. A/O X4. BREATHING EVEN AND NON-LABORED ON ROOM AIR. NOT IN APPARENT DISTRESS. VERBALIZED IMPROVEMENT OF RIGHT LEG/ANKLE PAIN AFTER TAKING HIS PAIN MED. HAS LEFT HAND IV ACCESS #20G AND SALINE LOCKED. NO S/S OF INFILTRATION NOTED. VERBALIZED HE HAD BM X1, WNL. ADVISED TO KEEP HIS RIGHT LOWER EXTREMITY ELEVATED. SAFETY PRECAUTIONS IN PLACE: BED LOCKED AND IN LOW POSITION, SIDE RAILS UP X2, CALL LIGHT WITHIN REACH. WILL CONTINUE PLAN OF CARE.
[2023-01-16 20:00] VITALS: BP 102/57
[2023-01-16] MEDS: ATORVASTATIN 40 MG TABLET PO SCH (21:35)
--- NOTE | 2023-01-16 21:40 | NUR ---
C/O SHARP AND THROBBING RIGHT LEG/ANKLE PAIN 03/06. GAVE PRN NORCO 10-325 AND APPLIED COLD COMPRESS.
[2023-01-17] MEDS: HYDROCODONE/APAP 10/325MG TABLET PO PRN ×2 (06:56→12:23)
[2023-01-17] MEDS: PANTOPRAZOLE 40 MG TABLET.DR PO SCH (06:56)
--- NOTE | 2023-01-17 07:10 | NUR ---
MS RN OPENING NOTES RECEIVED PATIENT AWAKE IN BED, A/Ox4, ABLE TO MAKE NEEDS KNOWN. ON ROOM AIR NO S/S OF RESPIRATORY DISTRESS. IV ACCESS L HAND #20G S/L, INTACT AND PATENT. AMBULATORY WITH WALKER, NON-WEIGHT BEARING RLE. SKIN ISSUES: RLE SURGERY SITE. DRESSING IN PLACE NO S/S OF DRAINAGE. SAFETY MEASURES IN PLACE: BED LOCKED AND IN LOWEST POSITION, HOB ELEVATED, CALL LIGHT WITHIN REACH, SIDE RAILS UPx2. WILL CONTINUE TO MONITOR.
--- NOTE | 2023-01-17 07:24 | NUR ---
MS BECERRA CLOSING NOTES - PATIENT AWAKE, ABLE TO VERBALIZE NEEDS. NO CARDIAC OR RESPIRATORY DISTRESS THROUGHOUT THE NIGHT. GIVEN PRN NORCO 10-325MG FOR HIS RIGHT LEG/ANKLE PAIN 03/06. AFEBRILE. LEFT HAND IV ACCESS INTACT, PATENT AND FLUSHING. SURGICAL DRESSING C/D/I. ALL DUE MEDS GIVEN AND NEEDS ATTENDED. NWB ON RIGHT LOWER EXTREMITY, USES FWW TO AMBULATE. SAFETY PRECAUTIONS MAINTAINED. WILL ENDORSE TO NEXT SHIFT FOR MINOR. Addendum: 01/17/23 at 0732 by February BUDDY BECERRA NO HALLUCINATIONS OR UNUSUAL BEHAVIOR OBSERVED DURING SHIFT.
[2023-01-17 08:17] VITALS: BP 117/55
[2023-01-17] MEDS: risperiDONE 1 MG TABLET PO SCH (08:43)
[2023-01-17] MEDS: DOCUSATE SODIUM 100 MG CAPSULE PO SCH (08:43)
[2023-01-17] MEDS: TRAMADOL HCL 50 MG TABLET PO PRN (08:46)
--- NOTE | 2023-01-17 09:00 | NUR ---
RN NOTES PATIENT COMPLAINED OF PAIN IN R LEG, 8/, PRN ULTRAM ADMINISTERED. WILL CONTINUE TO MONITOR.
[2023-01-17] MEDS: ENOXAPARIN SODIUM 40 MG/0.4 ML DISP.SYRIN SQ SCH (11:15)
[2023-01-17] MEDS ORDERED: RIVA10TA PO (11:57)
[2023-01-17] MEDS ORDERED: TRAM50TA2 PO (11:57)
[2023-01-17] MEDS ORDERED: ATOR40TA PO (11:57)
[2023-01-17] MEDS ORDERED: HYDR-3980 PO (11:57)
[2023-01-17] MEDS ORDERED: RISP1TAB7 PO (11:57)
[2023-01-17] MEDS ORDERED: DOCU250C14 PO (11:57)
--- NOTE | 2023-01-17 13:00 | NUR ---
PRETZEL TWISTER NOTES PATIENT DISCHARGED HOME. A/Ox4 ABLE TO MAKE NEEDS KNOWN STABLE ON ROOM AIR. NO S/S OF RESPIRATORY DISTRESS OR DISCOMFORT. PATIENT REQUESTING PAIN MEDICATION PRIOR TO DISCHARGE, PRN NARCO ADMINISTERED FOR PAIN 05/06. PHOTOS TAKEN AND FILED INTO CHART. ALL FORMS SIGNED, COPIED, AND FILED INTO CHART. IV ACCESS REMOVED AND PRESSURE DRESSING APPLIED, ID BAND REMOVED. PATIENT LEFT UNIT VIA WHEELCHAIR ACCOMPANIED BY RN, GRETCHEN @7560. LEFT VIA PRIVATE CAR WITH MOTHER, CHARGE NURSE AND MD AWARE OF DISCHARGE.
== END 2023-01-17 12:30 | disposition home health service (06) | DRG 493 ==
LOC: ER 00:33 → TRANSITION 05:22 → MED 08:36
PROVIDERS: ADMIT Internal Medicine; ATTEND Nurse Practitioner Acute Care
PROC: 0QSG06Z Reposition Right Tibia with Intramedullary Internal Fixation Device, Open Approach (ICD-10-PCS; principal; 2023-01-13)
DX: S82.301A Unspecified fracture of lower end of right tibia, initial encounter for closed fracture (principal); E87.1 Hypo-osmolality and hyponatremia; F05 Delirium due to known physiological condition; F33.1 Major depressive disorder, recurrent, moderate; S82.401A Unspecified fracture of shaft of right fibula, initial encounter for closed fracture; E78.5 Hyperlipidemia, unspecified; W18.30XA Fall on same level, unspecified, initial encounter; D72.829 Elevated white blood cell count, unspecified; E66.9 Obesity, unspecified; Z68.31 Body mass index [BMI] 31.0-31.9, adult; E87.6 Hypokalemia; I70.0 Atherosclerosis of aorta
CPT/HCPCS: 36415; 73590-TC; 73600-TC; 73610-TC; 73700-TC; 80048-TC; 80053-TC; 80061-TC; 81001; 83735-TC; 84100-TC; 84300-TC; 85025-TC; 85027-TC; 85610-TC; 85730-TC; 87081-TC; 93307-TC; 97110-TC; 97112-TC; 97116-TC; 97530-TC; 97535-TC; A4223; A6253; A6402; A6403; C1713; C9803; G0378; J0690; J1100; J1170; J1650; J1885; J2250; J2270; J2405; J2704; J3010; J3370; J3490; J7030; J7040; J7060